=== PATIENT | female | born 1960 | race Caucasian/White ===

== ENCOUNTER 2018-12-14 05:02 | Emergency (ER) | payer MEDICAID ==
[~2018-12-14] VITALS: Ht 160 cm; Wt 90.9 kg
[2018-12-14 05:04] VITALS: Ht 160 cm; Wt 90.9 kg
[2018-12-14] MEDS ORDERED: NYSTATIN OINTME15 GM TOPICAL (05:07)
[2018-12-14] MEDS ORDERED: REMERON15 MG PO (05:07)
[2018-12-14] MEDS ORDERED: PROTONIX20 MG PO (05:08)
[2018-12-14] MEDS ORDERED: K-DUR20 MEQ PO (05:08)
[2018-12-14] MEDS ORDERED: PRAVACHOL40 MG PO (05:08)
[2018-12-14] MEDS ORDERED: PREMARIN0.625 MG PO (05:08)
[2018-12-14] MEDS ORDERED: BENZTROPINE MESY2 MG PO (05:09)
[2018-12-14] MEDS ORDERED: GAS-X125 M1 PO (05:09)
[2018-12-14] MEDS ORDERED: CHRONULAC30 ML (05:09)
[2018-12-14] MEDS ORDERED: SENNA LAXATIVE8.6 MG PO (05:09)
[2018-12-14] MEDS ORDERED: TIROSINT100 MCG PO (05:10)
[2018-12-14 06:45] VITALS: BP 133/89
== END 2018-12-14 06:45 ==
LOC: D.ER 05:02
DX: K94.23 Gastrostomy malfunction (principal)